=== PATIENT | female | born 1970 | race Caucasian/White ===

== ENCOUNTER 2016-04-19 07:58 | Day surgery (SDC) | payer OTHER ==
[2016-04-19] MEDS ORDERED: DIAZEPAM 5 MG TAB PO ONE (08:01)
[2016-04-19] MEDS ORDERED: FAMOTIDINE 20 MG TAB PO ONE (08:01)
[2016-04-19] MEDS ORDERED: ASPIRIN EC 325 MG TAB PO ONE ×2 (08:01→08:43)
[2016-04-19] MEDS ORDERED: diphenhydrAMINE 25 MG CAP PO ONE ×2 (08:01→08:43)
[2016-04-19] MEDS ORDERED: NS 1,000 ML IV ONE (08:01)
[2016-04-19] MEDS ORDERED: LIDOCAINE 1% 30 ML SDV ONE (08:29)
[2016-04-19] MEDS ORDERED: MIDAZOLAM 2 MG/2 ML VIAL ONE (08:29)
[2016-04-19] MEDS ORDERED: fentaNYL 100 MCG/2 ML INJ ONE (08:29)
--- NOTE | 2016-04-19 08:29 | CPEKG ---
Heart Rate: 69 RR Interval: 870 P-R Interval: 176 QRSD Interval: 94 QT Interval: 428 QTC Interval: 459 P [place]: 27 QRS [place]: 38 T Wave [place]: 23 EKG Severity - NORMAL ECG - EKG Impression: SINUS RHYTHM Electronically Signed By: Apolinar Nguyen 19-Apr-2016 12:15:41
[2016-04-19] MEDS ORDERED: VERAPAMIL 5 MG/2 ML VIAL ONE (08:30)
[2016-04-19] MEDS ORDERED: HEPARIN 10,000 UNIT/10 ML MDV ONE (08:30)
[2016-04-19] MEDS ORDERED: IOPAMIDOL (ISOVUE-370) 150 ML BTL IV ONE (08:30)
[2016-04-19] MEDS ORDERED: FAMOTIDINE 20 MG TAB ONE (08:43)
[2016-04-19] MEDS ORDERED: DIAZEPAM 5 MG TAB ONE (08:44)
[2016-04-19 08:53] LABS: % IMMATURE GRANULYOCYTES 0.3 % (0.0-1.1); ABSOLUTE IMMATURE GRANULOCYTES 0.02 10^3/uL (0.00-0.10); ADD DIFF? NO; ADD MORPH? NO; ADD SCAN? NO; ATYPICAL LYMPHOCYTE FLAG 10 (0-99); FRAGMENT RBC FLAG 0 (0-99); HEMATOCRIT 43.8 % (38.0-47.0); HEMOGLOBIN 14.7 g/dL (12.6-16.3); LEFT SHIFT FLG 0 (0-99); LIPEMIA HEMOLYSIS FLAG 80 (0-99); MEAN CELL HEMOGLOBIN 29.6 pg (27.9-34.1); MEAN CELL HEMOGLOBIN CONCENTR. 33.6 g/dL (32.4-36.7); MEAN CELL VOLUME 88.1 fL (81.5-99.8); MEAN PLATELET VOLUME 10.1 fL (8.7-11.7); PLATELET CLUMPS FLAG 0 (0-99); PLATELET COUNT 251 10^3/uL (150-400); RED BLOOD CELL COUNT 4.97 10^6/uL (4.18-5.33); RED CELL DISTRIBUTION WIDTH 13.5 % (11.5-15.2)
[2016-04-19 09:07] LABS: INR 1.02 (0.83-1.16); PROTIME(PATIENT) 13.3 SEC (12.0-15.0)
[2016-04-19 09:13] LABS: ANION GAP 11 mEq/L (8-16); CALCIUM 9.5 mg/dL (8.5-10.4); CARBON DIOXIDE 22 mEq/l (22-31); CHLORIDE 109 mEq/L (97-110); CHOLESTEROL 134 mg/dL (140-200); CHOLESTEROL/HDL RATIO 2.58 RATIO (1.00-4.44); GLOMERULAR FILTRATION RATE 60; GLUCOSE 96 mg/dL (70-100); HIGH DENSITY LIPOPROTEIN 52 mg/dL (40-95); LOW DENSITY LIPOPROTEIN 52 mg/dL (70-100); MAGNESIUM 1.9 mg/dL (1.6-2.3); NON-HIGH DENSITY LIPOPROTEIN 82 mg/dL (90-129); POTASSIUM 3.6 mEq/L (3.5-5.2); SODIUM 142 mEq/L (134-144); TRIGLYCERIDE 153 mg/dL (35-135); VERY LOW DENSITY LIPOPROTEINS 30 mg/dL (8-25)
[2016-04-19] MEDS ORDERED: ETOMIDATE 40 MG/20 ML INJ ONE (09:42)
--- NOTE | 2016-04-19 10:18 | PDDXCAT ---
Diagnostic Cath Note - . Date: 04/19/16 Intervention: None Indication: CCS Class III Angina, low-risk stress test, abnormal stress EKG, premature family history of cardiovascular events. *Procedure 1. left heart catheterization 2. coronary angiography 3. left ventriculogram Access: Right radial artery. A plethysmography trace assisted Luis's Test was used to document dual artery supply to the right hand and index finger prior to access. *Materials Left Heart Cath size: 5F Left Heart Cath materials: JL3.5, JR4.0, pigtail *Findings-Left Heart Catheterization LM: The left main is short, ~6 mm in size and bifurcates into an LAD and circumflex system. There is no evidence of flow-limiting disease. LAD: The LAD is ~3.5 mm in size with two diagonal branches >2 mm in size. There is no evidence of flow-limiting disease with MANJINDER III flow throughout. LCX: The circumflex is ~3 mm in size without evidence of flow-limiting disease and MANJINDER III flow throughout. RCA: The RCA is dominant (gives rise to PDA and PLV branches) and ~5 mm in size. There is no evidence of flow-limiting disease with MANJINDER III flow throughout. EDP: 18 mmHg LVEF: 50% Left ventriculogram findings: LV systolic function is mildly reduced with basal inferior and mild anterolateral hypokinesis. The visualized portion of the thoracic aorta revealed three sinuses of Valsalva. There is no felton evidence of aneurysm or dissection. *Summary Complications: None Estimated blood loss: <50ml Closure method: TR Band Assessment: There is no evidence of flow-limiting coronary artery disease or calcified plaque in the coronary circulation. The patient is at an increased risk of myocardial infarction on the basis of her family history alone. Primary prevention including the use of daily Atorvastatin at 40 mg daily and ASA should be continued. She had a low-normal ejection fraction of 50% with mild basal inferior and mild anterolateral hypokinesis on LVG, which is of unclear significance. Usually segmental wall motion abnormalities are secondary to ischemia; however, no flow-limiting obstruction was identified on the basis of this study. The patient may have microvascular angina and we could consider the use of SL Nitro as a therapeutic and diagnostic trial. Patient Problems: Problems Problem Status Onset Chest discomfort Acute Headache Acute
[2016-04-19] MEDS ORDERED: OXYCODONE/APAP 5/325 TAB ONE (14:21)
== END 2016-04-19 17:48 | disposition home or self-care (01) ==
LOC: FCATH 07:58
PROVIDERS: ATTEND Internal Medicine Cardiovascular Disease
PROC: B2151ZZ Fluoroscopy of Left Heart using Low Osmolar Contrast (ICD-10-PCS; principal; 2016-04-19)
PROC: B2111ZZ Fluoroscopy of Multiple Coronary Arteries using Low Osmolar Contrast (ICD-10-PCS; principal; 2016-04-19)
PROC: 4A023N7 Measurement of Cardiac Sampling and Pressure, Left Heart, Percutaneous Approach (ICD-10-PCS; principal; 2016-04-19)
DX: R07.89 Other chest pain (principal); R00.0 Tachycardia, unspecified; E78.5 Hyperlipidemia, unspecified; Z82.49 Family history of ischemic heart disease and other diseases of the circulatory system; R94.39 Abnormal result of other cardiovascular function study
CPT/HCPCS: J1644; J2250; J3010; Q9967

== ENCOUNTER → 2016-10-18 | Outpatient (CLI) | payer OTHER | LOC: FIMAGING 13:04 | PROVIDERS: ATTEND Internal Medicine | DX: Z12.31 Encounter for screening mammogram for malignant neoplasm of breast (principal) | CPT/HCPCS: G0202 ==